=== PATIENT | male | born 1975 | race Caucasian/White ===

== ENCOUNTER 2021-02-13 15:35 | Emergency (ER) | payer MEDICAID, OTHER ==
[~2021-02-13] VITALS: Ht 175.3 cm; Wt 82.0 kg
[~2021-02-13 15:35] MED LIST: HYDR-4001 PO; INSLIS SUBCUT
[2021-02-13 15:49] VITALS: BP 92/63
[2021-02-13] MEDS ORDERED: HYDR-4001 PO (17:20)
[2021-02-13] MEDS ORDERED: BO1 TP (17:20)
== END 2021-02-13 17:35 | disposition home or self-care (01) ==
LOC: ER 15:35
DX: Z48.02 Encounter for removal of sutures (principal); Z76.0 Encounter for issue of repeat prescription; Z90.49 Acquired absence of other specified parts of digestive tract
CPT/HCPCS: 99283

== ENCOUNTER 2023-03-12 09:53 | Emergency (ER) | payer MEDICAID ==
[~2023-03-12] VITALS: Ht 175.3 cm; Wt 70.3 kg
[~2023-03-12 09:53] MED LIST changes: +BO1 TP
[2023-03-12 09:59] VITALS: BP 145/120; PULSE 109; RESP 18; O2SAT 99
[2023-03-12 10:15] VITALS: TEMP 98.9
[2023-03-12] MEDS ORDERED: ACETAMINOPHEN 325MG TABLET PO ONE (10:15)
[2023-03-12] MEDS ORDERED: SULFAMETHOXAZOLE/TRIMETHOPRIM 800/160MG TABLET PO ONE (10:15)
[2023-03-12 10:32] LABS: BASOPHILS % 0.3 % (0.0-2.0); EOSINOPHILS % 0.1 % (0.0-5.0); HEMATOCRIT. 38.8 % (42.0-52.0); LYMPHOCYTES % 13.1 % (20.0-50.0); MEAN CORPUSCULAR HEMOGLOBIN 30.6 pg (28.0-32.0); MEAN CORPUSCULAR VOLUME 84.9 fL (80.0-94.0); MONOCYTES % 9.4 % (2.0-8.0); NEUTROPHILS % 77.1 % (40.0-76.0); PLATELET 244 x1000/uL (130-400); RED BLOOD CELL COUNT 4.57 mill/uL (4.7-6.1); RED CELL DISTRIBUTION WIDTH 12.9 % (11.6-14.6)
[2023-03-12 10:34] LABS: CHLORIDE 102 mEq/L (98-107)
[2023-03-12] MEDS ORDERED: INSULIN REGULAR (HUMULIN R) 300UNITS/3ML VIAL SUBCUT ONE (11:45)
[2023-03-12] MEDS ORDERED: ACET-2708 MT (11:47)
[2023-03-12] MEDS ORDERED: SULF1TAB48 MT (11:47)
== END 2023-03-12 12:18 | disposition home or self-care (01) ==
LOC: ER 10:04
DX: L03.116 Cellulitis of left lower limb (principal); E11.9 Type 2 diabetes mellitus without complications; Z00.00 Encounter for general adult medical examination without abnormal findings; Z91.148 Patient's other noncompliance with medication regimen for other reason
CPT/HCPCS: 99284; 80053; 85025; 36415; 73630; 96372; J1815

== ENCOUNTER 2023-03-20 11:08 | Emergency (ER) | payer MEDICAID ==
[~2023-03-20] VITALS: Ht 175.3 cm; Wt 70.5 kg
[~2023-03-20 11:08] MED LIST changes: +ACET-2708 MT; +SULF1TAB48 MT
[2023-03-20 11:17] VITALS: BP 109/78; PULSE 91; RESP 16; TEMP 98.3; O2SAT 99
[2023-03-20] MEDS ORDERED: CIPHCO LEFT EAR (11:48)
[2023-03-20] MEDS ORDERED: SULF1TAB48 MT (11:49)
[2023-03-20] MEDS ORDERED: CEPH250C2 MT (12:58)
== END 2023-03-20 12:01 | disposition home or self-care (01) ==
LOC: ER 11:08
DX: H60.502 Unspecified acute noninfective otitis externa, left ear (principal); L03.115 Cellulitis of right lower limb; E11.9 Type 2 diabetes mellitus without complications; Z79.899 Other long term (current) drug therapy
CPT/HCPCS: 99281; 99283

== ENCOUNTER 2024-02-17 23:12 | Emergency (ER) | payer MEDICAID ==
[~2024-02-17] VITALS: Ht 177.8 cm; Wt 80.0 kg
[~2024-02-17 23:12] MED LIST changes: +CEPH250C2 MT; +CIPHCO LEFT EAR
[2024-02-17 23:23] VITALS: TEMP 98; O2SAT 98
[2024-02-17 23:56] LABS: BASOPHILS % 0.2 % (0.0-2.0); EOSINOPHILS % 0.7 % (0.0-5.0); HEMATOCRIT. 42.7 % (42.0-52.0); HEMOGLOBIN. 14.7 g/dL (14.0-18.0); LYMPHOCYTES % 10.4 % (20.0-50.0); MEAN CORPUSCULAR HGB CONC 34.5 g/dL (31.0-37.0); MEAN PLATELET VOLUME 7.6 fl (7.4-10.4); MONOCYTES % 6.4 % (2.0-8.0); NEUTROPHILS % 82.3 % (40.0-76.0); PLATELET 243 x1000/uL (130-400); RED BLOOD CELL COUNT 5.08 mill/uL (4.7-6.1); RED CELL DISTRIBUTION WIDTH 14.4 % (11.6-14.6)
[2024-02-18 00:03] LABS: CHLORIDE 109 mEq/L (98-107); POTASSIUM 3.8 mEq/L (3.5-5.1); SODIUM 144 mEq/L (136-145)
[2024-02-18 00:04] LABS: CALCIUM 9.6 mg/dL (8.7-10.4); CARBON DIOXIDE 27 mEq/L (21-32)
[2024-02-18 00:09] LABS: CREATININE 1.2 mg/dL (0.6-1.3); UREA NITROGEN BLOOD 15 mg/dL (9-23)
[2024-02-18 00:16] LABS: ETHANOL BLOOD < 10 mg/dL (<10); GLUCOSE 65 mg/dL (70-105)
[2024-02-18 01:34] VITALS: BP 150/84; PULSE 82; RESP 18
== END 2024-02-18 01:34 | disposition home or self-care (01) ==
LOC: ER 23:14
DX: E11.649 Type 2 diabetes mellitus with hypoglycemia without coma (principal); Z90.49 Acquired absence of other specified parts of digestive tract; Z79.899 Other long term (current) drug therapy
CPT/HCPCS: 36415; 80048; 80320; 82962; 85025; 99283; G0480

== ENCOUNTER 2024-04-29 03:00 | Emergency (ER) | payer MEDICAID ==
[~2024-04-29] VITALS: Ht 175.3 cm; Wt 82.0 kg
[2024-04-29 03:07] VITALS: O2SAT 98
[2024-04-29] MEDS: ACETAMINOPHEN 325MG TABLET PO ONE (03:45)
[2024-04-29 04:38] VITALS: BP 130/78; PULSE 80; RESP 17; TEMP 36.66960; O2SAT 99
== END 2024-04-29 04:39 | disposition home or self-care (01) ==
LOC: ER 03:00
DX: S50.02XA Contusion of left elbow, initial encounter (principal); R22.32 Localized swelling, mass and lump, left upper limb; E11.9 Type 2 diabetes mellitus without complications; E78.00 Pure hypercholesterolemia, unspecified; Z79.899 Other long term (current) drug therapy; Z90.49 Acquired absence of other specified parts of digestive tract; Z00.00 Encounter for general adult medical examination without abnormal findings; W18.30XA Fall on same level, unspecified, initial encounter; Y93.89 Activity, other specified; Y92.89 Other specified places as the place of occurrence of the external cause; Y99.8 Other external cause status
CPT/HCPCS: 73080; 99283

== ENCOUNTER 2025-08-25 10:09 | Emergency (ER) | payer MEDICAID ==
[~2025-08-25] VITALS: Ht 175.3 cm; Wt 82.0 kg
[2025-08-25 10:11] VITALS: O2SAT 100
[2025-08-25] MEDS ORDERED: CEPH500T MT (11:53)
[2025-08-25] MEDS: BACITRACIN ZINC OINT UDPKT TOP ONE (12:05)
[2025-08-25 12:06] VITALS: BP 121/89; PULSE 74; RESP 15; TEMP 36.7; O2SAT 100
== END 2025-08-25 12:06 | disposition home or self-care (01) ==
LOC: ER 10:09
DX: M19.071 Primary osteoarthritis, right ankle and foot (principal); E11.621 Type 2 diabetes mellitus with foot ulcer; E78.00 Pure hypercholesterolemia, unspecified; Z90.49 Acquired absence of other specified parts of digestive tract
CPT/HCPCS: 73630; 99283